=== PATIENT | female | born 1955 | race Caucasian/White ===

== ENCOUNTER 2017-01-15 14:11 | Observation (INO) | payer BC ==
[~2017-01-15] VITALS: Ht 165.1 cm; Wt 75.2 kg
[~2017-01-15 14:11] MED LIST: ZESTORETIC,P1 TABLE1 PO
[2017-01-15 14:49] LABS: HEMATOCRIT 43.4 % (36.0-46.0); MCH 33.9 PG (29.0-34.0); MCHC 34.6 G/DL (30.0-36.0); MCV 98.2 FL (83-99); MEAN PLAT.VOLUME 10.6 uM^3 (9.5-12.4); PLATELET COUNT 315 K/uL (156-360); RBC DIS.WIDTH-CV 12.6 % (11.8-14.6); RBC DIS.WIDTH-SD 45.4 % (39-53); RED BLOOD COUNT 4.42 M/uL (3.80-5.20); WHITE BLOOD COUNT 6.4 K/uL (4.1-10.2)
[2017-01-15 15:04] LABS: CHLORIDE 97 mEq/L (99-109); SODIUM 134 mEq/L (136-147)
[2017-01-15 15:06] LABS: GLUCOSE 112 mg/dL (70-99)
[2017-01-15 15:07] LABS: ANION GAP 13 MEQ/L (2-14)
[2017-01-15 15:09] LABS: GFR ESTIMATE (CALCULATED) 40 mL/min/
[2017-01-15 15:10] LABS: UREA NITROGEN (BUN) 19 mg/dL (9-23)
[2017-01-15 15:13] LABS: TROP-I INTERPRETATION NEGATIVE; TROPONIN-I < 0.01 ng/mL (0.0-0.30)
[2017-01-15 16:57] LABS: ADD MIUA? NO; BILIRUBIN NEGATIVE; BLOOD NEGATIVE; COLOR YELLOW ((YELLOW)); GLUCOSE (STRIP) NEGATIVE; KETONES 20; LEUKOCYTES NEGATIVE; NITRITE NEGATIVE; PROTEIN (STRIP) NEGATIVE; UROBILINOGEN 0.2 MG/DL (0.2-1.0)
[2017-01-15] MEDS ORDERED: LISINOPRIL-HCT1 EAC3 PO (17:04)
[2017-01-15] MEDS ORDERED: AMBIEN10 MG PO (17:05)
[2017-01-15] MEDS ORDERED: FLEXERIL10 MG PO (17:05)
[2017-01-15] MEDS ORDERED: COQ-10100 MG PO (17:06)
[2017-01-15] MEDS ORDERED: BIOTIN10000 MC1 PO (17:06)
[2017-01-15] MEDS ORDERED: TRAMADOL HCL50 MG PO (17:06)
[2017-01-15] MEDS ORDERED: MULTI-VITAMIN1 EAC4 PO (17:06)
[2017-01-15 18:41] LABS: TOTAL BILIRUBIN 1.2 mg/dL (0.0-1.0)
[2017-01-15 18:43] LABS: ALKALINE PHOSPHATASE 89 IU/L (3-129)
[2017-01-15 18:45] LABS: DIRECT BILIRUBIN 0.4 mg/dL (0.0-0.3)
[2017-01-15 18:46] LABS: LIPASE 20 U/L (1.0-51.0)
[2017-01-15 19:55] VITALS: BP 140/83
[2017-01-15 21:43] LABS: TROP-I INTERPRETATION NEGATIVE; TROPONIN-I < 0.01 ng/mL (0.0-0.30)
[2017-01-16] VITALS: BP 112/69
[2017-01-16 02:55] LABS: TROP-I INTERPRETATION NEGATIVE; TROPONIN-I < 0.01 ng/mL (0.0-0.30)
[2017-01-16 05:56] LABS: HEMATOCRIT 36.5 % (36.0-46.0); MCH 34.5 PG (29.0-34.0); MCHC 35.3 G/DL (30.0-36.0); MCV 97.6 FL (83-99); MEAN PLAT.VOLUME 10.7 uM^3 (9.5-12.4); PLATELET COUNT 228 K/uL (156-360); RBC DIS.WIDTH-CV 12.5 % (11.8-14.6); RBC DIS.WIDTH-SD 44.8 % (39-53); RED BLOOD COUNT 3.74 M/uL (3.80-5.20); WHITE BLOOD COUNT 4.5 K/uL (4.1-10.2)
[2017-01-16 06:12] LABS: ALKALINE PHOSPHATASE 64 IU/L (3-129); ANION GAP 9 MEQ/L (2-14); CHLORIDE 106 MEQ/L (99-109); GFR ESTIMATE (CALCULATED) 44 mL/min/; GLUCOSE 93 mg/dL (70-99); SAMPLE HEMOLYSIS CHECK 0; SAMPLE ICTERIC CHECK 0; SAMPLE LIPEMIA CHECK 0; SODIUM 140 MEQ/L (136-147); TOTAL BILIRUBIN 0.9 MG/DL (0.0-1.0); UREA NITROGEN (BUN) 17 mg/dL (9-23)
[2017-01-16 07:15] VITALS: BP 130/81
[2017-01-16] MEDS ORDERED: ASPIR-LOW81 MG PO (07:43)
== END 2017-01-16 08:33 | disposition home or self-care (01) ==
LOC: EME 14:11 → EDOF 18:20 → 5WEST 19:31
PROVIDERS: Internal Medicine; Physician Assistant
DX: R07.89 Other chest pain (principal); N17.9 Acute kidney failure, unspecified; I10 Essential (primary) hypertension; R00.0 Tachycardia, unspecified
CPT/HCPCS: 71020; 80048; 80053; 80076; 81003; 83690; 84484; 85027; 93005; 99281; 99285; G0378; J2405; J7030; Q0177